=== PATIENT | female | born 1980 | race Caucasian/White ===

== ENCOUNTER 2022-12-20 10:01 | Outpatient (AMB) | payer OTHER, SELFPAY ==
--- NOTE | 2022-12-20 11:08 | MHC.OFFWIV ---
Intake Vital Signs 12/20/22 11:18 Weight 53.524 kg BP 106/64 Blood Pressure Location Lt brachial Position Sitting Pulse 70 Pulse Source Pulse Oximeter Temp 97.2 F Temp Source Temporal Artery Scan Pulse Oximetry (%) 98 Intake Visit Reasons: [employer]/ right hand mouse bite(lobby) Intake Note: pt is here for c/o right hand mouse bite, wild mouse. last night Patient Tobacco Use Status: Never used Tobacco Allergies No Known Drug Allergies Allergy (Unknown, Verified 12/20/22 11:09) UNKNOWN Do you need a note to return to daycare/school/sports/work: Yes HPI HPI Comments History of Present Illness Details 1135 42 year old female presents with mouse bite to right hand she was attacked by a wild mouse yesterday. Reports slight discomfort at site of bite. Last tetanus shot about 7 years ago. Denies fevers, chills, numbness, tingling. Physical exam significant for tiny puncture wound to right hand ( pinky) Concerns for potential risk for infection. Rabies low suspicion based off of CDC information/research no true indication for rabies shot and immunoglobulin, I explained this to patient however she is concerned however about rabies. A center to the [facility] for rabies series, rabies immunoglobulin, tetanus shot. Augmemtin sent to pharmacy [facility] Social History Patient Tobacco Use Status: Never used Tobacco Review of Systems Const Details: Constitutional : No Fever, No Chills, Cardiovascular : No Chest Pain, No SOB Respiratory : No Dyspnea Gastrointestinal : No abdominal pain Musculoskeletal : No Joint Swelling Skin : No rash, positive skin puncture wound Neuro : No Weakness, No Numbness Psych : No SI/HI All systems reviewed & are unremarkable except as noted in HPI and below Physical Exam Vital Signs: Last Vital Signs Temp 97.2 F 12/20/22 11:18 Pulse 70 12/20/22 11:18 BP 106/64 12/20/22 11:18 Pulse Ox 98 12/20/22 11:18 vss Appearance: Alert.? Oriented X3.? No acute distress.? Head: Normocephalic, atraumatic, no step-offs or deformities Eyes: Pupils equal, round and reactive to light.? CVS: Pulses normal.? Respiratory: No respiratory distress.? Skin: Skin warm and dry.? Normal skin color.? Normal skin turgor.? Extremities: 5/5 strength to bilateral upper and lower extremities + tiny puncture wound to right hand ( pinky) Neuro: Oriented X 3.? No motor deficit.? No sensory deficit. CN 2-12 intact Assessment & Plan Assessment & Plan (1) Bitten by mouse: Code(s): W53.01XA - Bitten by mouse, initial encounter Plan Take your medications as prescribed. If you were prescribed antibiotics today, it is important that you take your medication to their entirety, do not skip any doses, do not finish them early. Follow-up with your primary care provider this week. Return to the emergency department with new or worsening symptoms. Such as fevers, chills, chest pain, shortness of breath, nausea, vomiting, dizziness, headache, vision changes, lethargy In case of emergency call 911 Medications: New amoxicillin-pot clavulanate 875-125 mg 1 tab PO BID 20 tabs 0RF 10 days Coding Level of Care Code Est Pt Level 3 (47468) Diagnoses Bitten by mouse W53.01XA
[2022-12-20 11:18] VITALS: BP 106/64; PULSE 70; TEMP 36.2; O2SAT 98
== END 2022-12-20 12:36 | disposition home or self-care (01) ==
PROVIDERS: PCP Internal Medicine; Visit Provider Physician Assistant
DX: S61.206A Unspecified open wound of right little finger without damage to nail, initial encounter (principal); W53.01XA Bitten by mouse, initial encounter
CPT/HCPCS: 99213

== ENCOUNTER 2022-12-20 12:55 | Emergency (ER) | payer OTHER, SELFPAY ==
[2022-12-20 13:51] VITALS: BP 125/77; PULSE 85; RESP 18; TEMP 36.8; O2SAT 99; BMI 21.7
[2022-12-20 14:55] VITALS: BP 159/90; PULSE 100; RESP 16; TEMP 37.2; O2SAT 100
--- NOTE | 2022-12-20 15:09 | ED_ITS ---
HPI - Animal Bite General Chief Complaint: Animal Bite Stated Complaint: Rabies Shot Due to Mouse Bite Time Seen by Provider: 12/20/22 14:51 Source: patient Mode of arrival: ambulatory Limitations: no limitations History of Present Illness HPI narrative: Patient is a 42-year-old female who presents emergency department for evaluation after a bite to the pinky finger by a mouse last night. States she was advised by Urgent Care to come to emergency department for rabies vaccination. Related Data Previous Rx's Medication Instructions Recorded amoxicillin 875 mg-potassium 1 tab PO BID 10 days #20 tabs 12/20/22 clavulanate 125 mg tablet Allergies Allergy/AdvReac Type Severity Reaction Status Date / Time No Known Drug Allergies Allergy Unknown UNKNOWN Verified 12/20/22 13:53 Review of Systems Review of Systems: Yes all other systems are reviewed and are negative PMFSH Past Medical History Attestation statement: The following information was validated with the patient. Source: old records reviewed Social History Social History Patient Tobacco Use Status: Never used Tobacco Advance Directives: No Advance Directives Information Provided: No Physical Exam ED Vital Signs: Vital Signs - 24 hr 12/20/22 13:51 12/20/22 14:55 Temperature 98.2 F 98.9 F Pulse Rate 85 100 Respiratory Rate 18 16 Blood Pressure 125/77 159/90 H Pulse Oximetry 99 100 Oxygen Delivery Method Room Air Room Air BMI result Body Mass Index 21.7 Appearance: Alert.?Oriented to person, place and time. No acute distress.?Normal affect. CVS: Heart sounds normal. Normal heart rate and rhythm.? Pulses normal.?? Respiratory: No respiratory distress.? Lung sounds clear to auscultation bilaterally?? Skin: Skin warm and dry.? Normal skin color.? Fifth digit with small puncture bite, no surrounding erythema or warmth. Extremities: No extremity edema.? Neuro: Moves all extremities spontaneously. Sensation intact bilaterally. Ambu lates with normal steady gait. Medical Decision Making Medical Decision Making MDM Narrative: patient is a 42-year-old female who presents emergency department with referral from urgent care for rabies vaccination after being bitten by a mouse to the pinky finger last night. Patient was advised that small rodents including mice are almost never found to be infected with rabies and have not been known to transmit rabies to humans per the CDC. No indication for post exposure prophylaxis with rabies vaccination. Tdap was last updated 7 years ago, will update today. She reports her primary care provider has sent prophylactic antibiotics already to her pharmacy , no evidence of cellulitis or localized infection at this time. Discussed worrisome signs and symptoms that would warrant re-evaluation in the emergency department. All questions answered. Stable for discharge. Differential Diagnosis Differential Diagnoses: The differential diagnosis associated with the presentation includes ( Animal bite, tetanus exposure, no evidence of neurovascular compromise) External Record Review External record reviewed: Outpatient record Prescription Management I considered prescription management with: Antibiotic ( Antibiotic prophylaxis has been sent by her primary care provider) Discharge Plan Discharge Clinical Impression: Bite by animal Patient Disposition: Home, Self-Care Additional Instructions: as discussed, there is no indication for rabies prophylaxis /vaccination after being bitten by a mouse. Your tetanus vaccine was updated today. Take the prophylactic antibiotics as prescribed to you previously. Follow-up with your primary care provider with any new or worsening symptoms or concerns. Prescriptions: No Action amoxicillin-pot clavulanate 875-125 mg tablet 1 tab PO BID 10 Days Qty: 20 0RF Referrals: Marcelino Gastelum III, MD [Primary Care Provider] -
[2022-12-20] MEDS: Diphth,Pertus(ACell),Tet Adult 0.5 ML SYRINGE IM (15:40)
--- NOTE | 2022-12-20 15:44 | PC.NURSE ---
unable to scan barcode on syringe.
== END 2022-12-20 15:45 | disposition home or self-care (01) ==
PROVIDERS: Emergency Provider Emergency Medicine; PCP Internal Medicine
DX: S61.258A Open bite of other finger without damage to nail, initial encounter (principal); S60.418A Abrasion of other finger, initial encounter; W53.01XA Bitten by mouse, initial encounter; Y93.9 Activity, unspecified; Y92.9 Unspecified place or not applicable; Y99.9 Unspecified external cause status; Z23 Encounter for immunization
CPT/HCPCS: 90471; 90715; 99282; 99284